=== PATIENT | male | born 1990 | race Caucasian/White ===

== ENCOUNTER 2019-05-24 22:12 | Emergency (ER) | payer OTHER ==
[~2019-05-24] VITALS: Ht 177.8 cm; Wt 68.0 kg
[2019-05-24 22:40] VITALS: BP 131/81
[2019-05-24] MEDS ORDERED: Lidocaine 1% Plain 30 ml INJ ONE (23:00)
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
[2019-05-24 23:25] VITALS: BP 129/82
[2019-05-24] MEDS ORDERED: Neosporin Oint Ud Pkt TOPIC ONE (23:30)
== END 2019-05-24 23:25 | disposition home or self-care (01) ==
LOC: EMR 22:29
DX: S61.217A Laceration without foreign body of left little finger without damage to nail, initial encounter (principal); W25.XXXA Contact with sharp glass, initial encounter; Y93.89 Activity, other specified; Y92.9 Unspecified place or not applicable; Z88.1 Allergy status to other antibiotic agents
CPT/HCPCS: 12001; 99282; J2001